=== PATIENT | male | born 1980 | race African-American/Black ===

== ENCOUNTER 2017-08-12 22:10 | Emergency (ER) | payer BC ==
[~2017-08-12] VITALS: Ht 188 cm; Wt 69.0 kg
[2017-08-13 02:18] LABS: BASOPHILS % 0.4 % (0.0-2.0); EOSINOPHILS % 0.4 % (0.0-5.0); HEMATOCRIT. 40.6 % (42.0-52.0); HEMOGLOBIN. 13.5 g/dL (14.0-18.0); LYMPHOCYTES % 17.5 % (20.0-50.0); MEAN CORPUSCULAR HEMOGLOBIN 28.9 pg (28.0-32.0); MEAN CORPUSCULAR VOLUME 86.9 fL (80.0-94.0); MEAN PLATELET VOLUME 7.8 fl (7.4-10.4); MONOCYTES % 5.7 % (2.0-8.0); PLATELET 236 x1000/uL (130-400); RED BLOOD CELL COUNT 4.67 mill/uL (4.7-6.1)
[2017-08-13 02:23] LABS: CHLORIDE 105 mEq/L (98-107)
[2017-08-13 02:27] LABS: INR 1.1; PROTHROMBIN TIME 11.5 sec (9.4-11.6)
[2017-08-13 02:32] LABS: CARBON DIOXIDE 32 mEq/L (21-32)
[2017-08-13 03:16] VITALS: BP 155/81
== END 2017-08-13 04:47 | disposition left against medical advice (07) ==
LOC: ER 22:10
DX: R04.0 Epistaxis (principal); F17.200 Nicotine dependence, unspecified, uncomplicated; F12.10 Cannabis abuse, uncomplicated
CPT/HCPCS: 36415; 80053; 85025; 85610; 86850; 86900; 86901; 99284; Z7610

== ENCOUNTER 2017-08-15 10:55 | Emergency (ER) | payer SELFPAY ==
[~2017-08-15] VITALS: Ht 188 cm; Wt 68.0 kg
[2017-08-15 12:51] LABS: BASOPHILS % 0.3 % (0.0-2.0); EOSINOPHILS % 0.2 % (0.0-5.0); HEMATOCRIT. 39.3 % (42.0-52.0); HEMOGLOBIN. 13.2 g/dL (14.0-18.0); LYMPHOCYTES % 12.7 % (20.0-50.0); MEAN CORPUSCULAR HEMOGLOBIN 29.4 pg (28.0-32.0); MEAN CORPUSCULAR VOLUME 87.3 fL (80.0-94.0); MEAN PLATELET VOLUME 7.6 fl (7.4-10.4); MONOCYTES % 4.9 % (2.0-8.0); NEUTROPHILS % 81.9 % (40.0-76.0); PLATELET 258 x1000/uL (130-400)
[2017-08-15 12:56] LABS: INR 1.1; PROTHROMBIN TIME 11.3 sec (9.4-11.6)
[2017-08-15 13:05] LABS: CARBON DIOXIDE 33 mEq/L (21-32); CHLORIDE 101 mEq/L (98-107)
[2017-08-15 14:03] LABS: CLARITY URINE CLEAR (CLEAR); COLOR URINE YELLOW (YELLOW); KETONES URINE NEGATIVE (NEGATIVE); LEUKOCYTE ESTERASE URINE TRACE (NEGATIVE); NITRITE URINE NEGATIVE (NEGATIVE); OCCULT BLOOD URINE TRACE (NEGATIVE); PROTEIN URINE NEGATIVE (NEGATIVE); SPECIFIC GRAVITY URINE 1.025 (1.005-1.030)
[2017-08-15 16:29] VITALS: BP 138/72
[2017-08-15] MEDS ORDERED: OXYMETAZOLINE HCL NASAL SPRAY 15ML BOTHNSTRLS SCH (21:00)
== END 2017-08-15 16:30 | disposition home or self-care (01) ==
LOC: ER 11:21
DX: R04.0 Epistaxis (principal); K92.1 Melena; F17.200 Nicotine dependence, unspecified, uncomplicated; F10.129 Alcohol abuse with intoxication, unspecified; F12.10 Cannabis abuse, uncomplicated; Y90.9 Presence of alcohol in blood, level not specified
CPT/HCPCS: 36415; 80053; 81001; 85025; 85610; 99284; Z7610

== ENCOUNTER 2017-08-15 18:50 | Emergency (ER) | payer SELFPAY ==
[~2017-08-15] VITALS: Ht 188 cm; Wt 68.0 kg
[2017-08-15 19:04] VITALS: BP 115/88
[2017-08-15] MEDS ORDERED: ACETAMINOPHEN 325MG TABLET PO ONE (20:30)
== END 2017-08-15 20:36 | disposition home or self-care (01) ==
LOC: ER 19:39
DX: R04.0 Epistaxis (principal); J45.909 Unspecified asthma, uncomplicated; F12.10 Cannabis abuse, uncomplicated; F17.200 Nicotine dependence, unspecified, uncomplicated
CPT/HCPCS: 30901; 99284